=== PATIENT | male | born 2000 | race Caucasian/White ===

== ENCOUNTER 2018-09-07 16:15 | Emergency (ER) | payer OTHER ==
[~2018-09-07] VITALS: Ht 177.8 cm; Wt 122.5 kg
[~2018-09-07 16:15] MED LIST: AMPDEX30CR; ARIP10 PO; CODACEE120 PO; Norco 10-325 T1 EACH PO; Zofran Odt4 MG SL
== END 2018-09-07 17:29 | disposition home or self-care (01) ==
LOC: ER 16:15
DX: R00.2 Palpitations (principal); Z79.899 Other long term (current) drug therapy
CPT/HCPCS: 71046; 93005; 93010; 99284-25

== ENCOUNTER 2020-06-12 07:21 | Emergency (ER) | payer OTHER ==
[~2020-06-12] VITALS: Ht 175.3 cm; Wt 117.9 kg
[2020-06-12] MEDS ORDERED: GLIP2.5ER (07:36)
[2020-06-12] MEDS ORDERED: CLON.1 (07:36)
[2020-06-12] MEDS ORDERED: METF500 (07:36)
[2020-06-12] MEDS ORDERED: IBUP400 PO (07:57)
== END 2020-06-12 08:21 | disposition home or self-care (01) ==
LOC: ER 07:21
DX: M54.6 Pain in thoracic spine (principal); M25.512 Pain in left shoulder; E11.9 Type 2 diabetes mellitus without complications; F41.9 Anxiety disorder, unspecified; Z79.84 Long term (current) use of oral hypoglycemic drugs; Z79.899 Other long term (current) drug therapy
CPT/HCPCS: 99283

== ENCOUNTER 2023-06-04 23:56 | Emergency (ER) | payer OTHER ==
[~2023-06-04] VITALS: Ht 175.3 cm; Wt 104.3 kg
[~2023-06-04 23:56] MED LIST changes: -ARIP10 PO; +IBUP400 PO
[2023-06-05] MEDS ORDERED: ARIP10 PO (00:20)
[2023-06-05] MEDS ORDERED: GLIP2.5ER (00:20)
[2023-06-05] MEDS ORDERED: CLON.1 (00:21)
[2023-06-05] MEDS ORDERED: METF500 (00:21)
[2023-06-05 02:10] LABS: Albumin, Blood 4.2 g/dL (3.4-5.0); Albumin/Globulin Ratio 1.1 (0.8-1.8); Bilirubin, Total 0.6 mg/dL (0.1-1.0); Bun/Creatinine Ratio 13.7 (12.0-20.0); Calcium, Blood 9.2 mg/dL (8.5-10.1); Creatinine, Blood 0.95 mg/dL (0.60-1.20); Globulin, Blood 3.8 g/dL (2.2-4.0); Potassium, Blood 3.4 mmol/L (3.5-5.5)
[2023-06-05 02:14] LABS: BASOPHILS ABSOLUTE AUTO 0.03 K/mm3 (0.00-0.23); BASOPHILS PERCENT AUTO 0 % (0-2); EOSINOPHILS ABSOLUTE AUTO 0.01 K/mm3 (0.00-0.68); EOSINOPHILS PERCENT AUTO 0 % (0-6); Hematocrit 49.1 % (37.0-53.0); Hemoglobin 16.3 g/dL (13.5-17.5); IMMATURE GRAN ABSOLUTE AUTO 0.05 K/mm3 (0.00-0.10); IMMATURE GRAN PERCENT AUTO 0 % (0-1); LYMPHOCYTES ABSOLUTE AUTO 1.91 K/mm3 (0.84-5.20); LYMPHOCYTES PERCENT AUTO 15 % (21-46); MONOCYTES ABSOLUTE AUTO 0.87 K/mm3 (0.16-1.47); MONOCYTES PERCENT AUTO 7 % (4-13); Mean Corpuscular HGB 28.7 pg (26.0-34.0); Mean Corpuscular HGB Conc 33.2 g/dL (31.5-36.5); Mean Corpuscular Volume 86 fL (80-100); Mean Platelet Volume 12.7 fL (9.1-12.4); NEUTROPHILS ABSOLUTE AUTO 10.17 K/mm3 (1.96-9.15); NEUTROPHILS PERCENT AUTO 78 % (41-73); Platelet Count 231 K/mm3 (150-400); RDW Coefficient Variation 12.5 % (11.7-14.2); RDW Standard Deviation 39.2 fL (35.1-46.3); Red Blood Cell Count 5.68 M/mm3 (4.30-5.90); White Blood Cell Count 13.04 K/mm3 (4.00-11.30)
[2023-06-05 03:34] VITALS: BP 113/68
== END 2023-06-05 03:37 | disposition home or self-care (01) ==
LOC: ER 23:56
PROVIDERS: Emergency Medicine
DX: R04.2 Hemoptysis (principal); E87.6 Hypokalemia; E11.9 Type 2 diabetes mellitus without complications; Z83.2 Family history of diseases of the blood and blood-forming organs and certain disorders involving the immune mechanism; Z79.84 Long term (current) use of oral hypoglycemic drugs; Z79.899 Other long term (current) drug therapy
CPT/HCPCS: 80053; 85025; 85379; 93005; 93010; 99283-25; A9270

== ENCOUNTER 2024-03-21 21:07 | Emergency (ER) | payer OTHER ==
[~2024-03-21] VITALS: Ht 175.3 cm; Wt 108.9 kg
[~2024-03-21 21:07] MED LIST changes: +ARIP10 PO; +CLON.1; +GLIP2.5ER; +METF500
[2024-03-21 21:23] VITALS: BP 133/85
[2024-03-21] MEDS ORDERED: Amoxicillin875 MG PO (21:27)
[2024-03-21] MEDS ORDERED: Amoxicillin 875 MG Tab PO ONE (21:30)
== END 2024-03-21 21:31 | disposition home or self-care (01) ==
LOC: ER 21:07
DX: H66.92 Otitis media, unspecified, left ear (principal); E11.9 Type 2 diabetes mellitus without complications; Z79.84 Long term (current) use of oral hypoglycemic drugs; Z79.899 Other long term (current) drug therapy
CPT/HCPCS: 99282; A9270

== ENCOUNTER → 2024-03-27 | Outpatient (CLI) | payer OTHER ==
[~2024-03-27] MED LIST changes: +Amoxicillin875 MG PO
[2024-03-27 17:38] LABS: BASOPHILS ABSOLUTE AUTO 0.04 K/mm3 (0.00-0.23); BASOPHILS PERCENT AUTO 1 % (0-2); EOSINOPHILS ABSOLUTE AUTO 0.03 K/mm3 (0.00-0.68); EOSINOPHILS PERCENT AUTO 0 % (0-6); Hematocrit 48.9 % (37.0-53.0); Hemoglobin 16.5 g/dL (13.5-17.5); IMMATURE GRAN ABSOLUTE AUTO 0.03 K/mm3 (0.00-0.10); IMMATURE GRAN PERCENT AUTO 0 % (0-1); LYMPHOCYTES ABSOLUTE AUTO 1.69 K/mm3 (0.84-5.20); LYMPHOCYTES PERCENT AUTO 20 % (21-46); MONOCYTES ABSOLUTE AUTO 0.57 K/mm3 (0.16-1.47); MONOCYTES PERCENT AUTO 7 % (4-13); Mean Corpuscular HGB 28.5 pg (26.0-34.0); Mean Corpuscular HGB Conc 33.7 g/dL (31.5-36.5); Mean Corpuscular Volume 85 fL (80-100); Mean Platelet Volume 11.4 fL (9.1-12.4); NEUTROPHILS ABSOLUTE AUTO 6.12 K/mm3 (1.96-9.15); NEUTROPHILS PERCENT AUTO 72 % (41-73); Platelet Count 284 K/mm3 (150-400); RDW Coefficient Variation 12.5 % (11.7-14.2); RDW Standard Deviation 38.1 fL (35.1-46.3); Red Blood Cell Count 5.79 M/mm3 (4.30-5.90); White Blood Cell Count 8.48 K/mm3 (4.00-11.30)
[2024-03-27 18:05] LABS: Albumin, Blood 3.9 g/dL (3.4-5.0); Bilirubin, Total 0.3 mg/dL (0.1-1.0); Calcium, Blood 9.6 mg/dL (8.5-10.1); Creatinine, Blood 0.72 mg/dL (0.60-1.20); Globulin, Blood 4.1 g/dL (2.2-4.0); Potassium, Blood 4.1 mmol/L (3.5-5.5); Thyroid Stimulating Hormone 1.44 uIU/mL (0.360-4.800)
== END | disposition home or self-care (01) ==
LOC: LAB 17:10 → LAB SHORT 17:10
PROVIDERS: Family Medicine
DX: E13.69 Other specified diabetes mellitus with other specified complication (principal); R53.83 Other fatigue
CPT/HCPCS: 80053; 84443; 85025

== ENCOUNTER → 2024-08-05 | Outpatient (CLI) | payer OTHER | LOC: LAB 13:27 → LAB SHORT 13:27 | DX: J02.9 Acute pharyngitis, unspecified (principal) | CPT/HCPCS: 87081 ==

== ENCOUNTER → 2024-11-02 | Outpatient (CLI) | payer OTHER ==
[~2024-11-02] MED LIST changes: +TRIMAZOLE85 GM TOP
[2024-11-02 15:15] LABS: Source, Urine Clean Catch
[2024-11-02 16:12] LABS: Appearance, Urine Hazy (Clear); Bilirubin, Urine Neg (Neg); Blood, Urine 4+ (Neg); Color, Urine Yellow (P-Yellow); Glucose Qualitative, Urine 4+ (Neg); Ketones, Urine 3+ (Neg); Leukocyte Esterase, Urine 2+ (Neg); Nitrite, Urine Neg (Neg); Protein, Urine 2+ (Neg); Specific Gravity, Urine 1.025 (1.003-1.022); Urobilinogen, Urine NORM (Normal)
[2024-11-02 16:28] LABS: Amorphous Light (0-Heavy); Calcium Oxalate Crystals Mod /hpf; Mucus Mod (0-Heavy)
[2024-11-02 16:29] LABS: Squamous Epithelial Cells Many /hpf (Few)
[2024-11-02 16:30] LABS: Bacteria Many /hpf
== END | disposition home or self-care (01) ==
LOC: LAB SHORT 11:15 → LAB 11:15
PROVIDERS: Nurse Practitioner Family
DX: R30.0 Dysuria (principal)
CPT/HCPCS: 81001; 87086; 87147

== ENCOUNTER 2024-11-04 12:35 | Emergency (ER) | payer OTHER ==
[~2024-11-04] VITALS: Ht 167.6 cm; Wt 81.7 kg
[~2024-11-04 12:35] MED LIST changes: -TRIMAZOLE85 GM TOP
[2024-11-04 12:53] VITALS: BP 142/96
[2024-11-04] MEDS ORDERED: TRIMAZOLE85 GM TOP (13:14)
== END 2024-11-04 13:17 | disposition home or self-care (01) ==
LOC: ER 12:35
DX: N48.1 Balanitis (principal); N39.0 Urinary tract infection, site not specified; E11.9 Type 2 diabetes mellitus without complications; Z79.84 Long term (current) use of oral hypoglycemic drugs; Z79.899 Other long term (current) drug therapy
CPT/HCPCS: 99282